=== PATIENT | male | born 1935 | race Caucasian/White ===

== ENCOUNTER → 2016-07-06 | Outpatient (CLI) | payer OTHER ==
[~2016-07-06] MED LIST: ASPIRIN ADULT L81 M1 PO; FINASTERIDE5 MG; FLOMAX0.4 MG; ISOSORBIDE30 MG PO; LIPITOR10 MG PO; LIPITOR40 MG PO; METOPROLOL SR25 MG; NORVASC5 MG PO; Oscal,Oyster S500 MG PO; PRILOSEC40 MG PO; PRINIVIL10 MG PO; PRINIVIL20 M1 PO; PROSCAR5 M1 PO; PROTONIX40 MG PO; TOPROL XL25 MG PO; VITAMIN D5000 I2 PO
== END | disposition home or self-care (01) ==
LOC: LAB 10:32
DX: C61 Malignant neoplasm of prostate (principal)

== ENCOUNTER → 2016-07-14 | Outpatient (CLI) | payer OTHER ==
[2016-07-14 11:16] LABS: HEMOGLOBIN A1c 5.5 % (4.8-5.6)
[2016-07-14 11:31] LABS: ALBUMIN 3.5 gm/dl (3.1-4.5); BILIRUBIN, TOTAL 0.3 mg/dl (0.2-1.0); POTASSIUM 4.3 mmol/L (3.5-5.1); TOTAL PROTEIN 6.8 gm/dL (6.4-8.2)
== END | disposition home or self-care (01) ==
LOC: LAB 10:36
PROVIDERS: Internal Medicine Cardiovascular Disease
DX: I25.10 Atherosclerotic heart disease of native coronary artery without angina pectoris (principal); I10 Essential (primary) hypertension; E78.2 Mixed hyperlipidemia; R73.02 Impaired glucose tolerance (oral); Z79.899 Other long term (current) drug therapy

== ENCOUNTER → 2017-01-14 | Outpatient (CLI) | payer OTHER ==
[2017-01-14 10:40] LABS: ALBUMIN 3.6 gm/dl (3.1-4.5); CREATININE 1.6 mg/dL (0.70-1.30); POTASSIUM 3.9 mmol/L (3.5-5.1); TOTAL PROTEIN 7.2 gm/dL (6.4-8.2)
== END | disposition home or self-care (01) ==
LOC: LAB 09:47
DX: C61 Malignant neoplasm of prostate (principal); E78.2 Mixed hyperlipidemia; I25.10 Atherosclerotic heart disease of native coronary artery without angina pectoris; I10 Essential (primary) hypertension

== ENCOUNTER → 2017-03-08 | Outpatient (CLI) | payer OTHER | END | disposition home or self-care (01) | LOC: CT 01:11 | DX: I73.89 Other specified peripheral vascular diseases (principal); I70.0 Atherosclerosis of aorta; I25.10 Atherosclerotic heart disease of native coronary artery without angina pectoris; R20.8 Other disturbances of skin sensation; Z95.5 Presence of coronary angioplasty implant and graft ==

== ENCOUNTER → 2017-04-20 | Outpatient (CLI) | payer OTHER | END | disposition home or self-care (01) | LOC: RAD 10:23 | DX: M51.26 Other intervertebral disc displacement, lumbar region (principal); M99.03 Segmental and somatic dysfunction of lumbar region ==

== ENCOUNTER → 2017-07-02 | Outpatient (CLI) | payer OTHER | END | disposition home or self-care (01) | LOC: LAB 10:19 | DX: C61 Malignant neoplasm of prostate (principal) ==

== ENCOUNTER → 2017-07-23 | Outpatient (CLI) | payer OTHER | END | disposition home or self-care (01) | LOC: MRI 01:57 | DX: M48.061 Spinal stenosis, lumbar region without neurogenic claudication (principal); M79.604 Pain in right leg ==

== ENCOUNTER 2017-07-26 16:35 | Emergency (ER) | payer OTHER ==
[~2017-07-26] VITALS: Wt 72.6 kg
[2017-07-26 18:03] LABS: BASO % 0.2 % (0.0-1.0); EOS # 0.1 10*3/uL (0.0-0.4); EOS % 1.2 % (1.0-4.0); HEMATOCRIT 40.1 % (42.0-52.0); HEMOGLOBIN 13.1 g/dl (14.0-18.0); LYMPH # 0.8 10*3/uL (1.3-4.4); LYMPH % 9.7 % (27.0-41.0); MEAN CELL VOLUME 87.7 fl (80.0-94.0); MEAN CORPUSCULAR HGB 28.7 pg (27.0-31.0); MEAN CORPUSCULAR HGB CONC 32.7 g/dl (33.0-37.0); MEAN PLATELET VOLUME 10.9 fl (9.6-12.3); MONO # 0.6 10*3/uL (0.1-1.0); MONO % 7.2 % (3.0-9.0); NEUT # 6.8 10*3/uL (2.3-7.9); NEUT % 81.1 % (47.0-73.0); PLATELET COUNT AUTOMATED 126 10*3/uL (130-400); RED BLOOD COUNT 4.57 10*6/uL (4.50-5.90); RED CELL DISTRI WIDTH 15.7 % (0-14.5); WHITE BLOOD COUNT 8.4 10*3/uL (4.8-10.8)
[2017-07-26 18:12] LABS: ACT PARTIAL THROMBO TIME 21.8 SECONDS (20.8-31.5)
[2017-07-26 18:24] LABS: ALBUMIN 3.2 gm/dl (3.1-4.5); ALKALINE PHOSPHATASE 75 U/L (45-117); BUN 22 mg/dl (7-24); CHLORIDE 107 mmol/L (98-107); CREATININE 1.36 mg/dL (0.70-1.30); POTASSIUM 3.6 mmol/L (3.5-5.1); SGOT/AST 15 IU/L (3-35); SGPT/ALT 18 U/L (12-78); SODIUM 141 mmol/L (136-145)
[2017-07-26 18:28] LABS: TROPONIN I < 0.015 ng/ml (<0.045)
[2017-07-26 19:02] VITALS: BP 141/69
== END 2017-07-26 19:33 | disposition short-term general hospital (02) ==
LOC: ED 16:35
PROVIDERS: Emergency Medicine
DX: R53.1 Weakness (principal); R47.81 Slurred speech; I10 Essential (primary) hypertension; G89.29 Other chronic pain; I25.10 Atherosclerotic heart disease of native coronary artery without angina pectoris; M48.00 Spinal stenosis, site unspecified; F17.200 Nicotine dependence, unspecified, uncomplicated; Z90.89 Acquired absence of other organs; Z79.899 Other long term (current) drug therapy; Z79.82 Long term (current) use of aspirin

== ENCOUNTER 2017-08-02 15:23 | Emergency (ER) | payer OTHER ==
[~2017-08-02] VITALS: Ht 177.8 cm; Wt 74.8 kg
[2017-08-02 15:28] VITALS: BP 134/70
== END 2017-08-02 18:15 | disposition home or self-care (01) ==
LOC: ED 15:23
DX: M54.41 Lumbago with sciatica, right side (principal); I10 Essential (primary) hypertension; Z86.73 Personal history of transient ischemic attack (TIA), and cerebral infarction without residual deficits; Z79.82 Long term (current) use of aspirin; Z90.89 Acquired absence of other organs; Z79.899 Other long term (current) drug therapy

== ENCOUNTER 2017-08-08 18:10 | Emergency (ER) | payer OTHER ==
[~2017-08-08] VITALS: Wt 81.6 kg
== END 2017-08-08 19:50 | disposition expired ==
LOC: ED 18:10
DX: I46.9 Cardiac arrest, cause unspecified (principal); I10 Essential (primary) hypertension; Z90.89 Acquired absence of other organs; Z79.899 Other long term (current) drug therapy; Z86.73 Personal history of transient ischemic attack (TIA), and cerebral infarction without residual deficits